=== PATIENT | female | born 1985 | race Native Hawaiian/Other Pacific Islander ===

== ENCOUNTER 2017-04-19 20:19 | Emergency (ER) | payer OTHER ==
[~2017-04-19] VITALS: Ht 162.6 cm; Wt 131.1 kg
[~2017-04-19 20:19] MED LIST: ALBU0.0813 IN
[2017-04-19 21:30] VITALS: BP 143/89; TEMP 98
== END 2017-04-19 21:30 | disposition home or self-care (01) ==
LOC: ED 20:19
DX: H92.02 Otalgia, left ear (principal); H60.592 Other noninfective acute otitis externa, left ear
CPT/HCPCS: 99283

== ENCOUNTER 2021-02-08 10:03 | Emergency (ER) | payer OTHER ==
[~2021-02-08] VITALS: Ht 162.6 cm; Wt 127.0 kg
[2021-02-08 10:13] VITALS: TEMP 98
[2021-02-08 13:15] VITALS: BP 130/66
== END 2021-02-08 13:24 | disposition home or self-care (01) ==
LOC: ED 10:03
DX: S20.212A Contusion of left front wall of thorax, initial encounter (principal); R07.89 Other chest pain; W10.8XXA Fall (on) (from) other stairs and steps, initial encounter; Y92.89 Other specified places as the place of occurrence of the external cause
CPT/HCPCS: 81000; 81025; 99283; J1885

== ENCOUNTER 2021-12-02 15:32 | Emergency (ER) | payer OTHER ==
[~2021-12-02] VITALS: Ht 162.6 cm; Wt 131.5 kg
[2021-12-02 15:57] LABS: PLATELET COUNT 212 K/uL (152-353)
[2021-12-02 16:14] LABS: POTASSIUM 3.5 mmol/L (3.6-5.2)
[2021-12-02 17:30] VITALS: BP 127/80; TEMP 97.9
== END 2021-12-02 17:30 | disposition home or self-care (01) ==
LOC: ED 15:32
PROVIDERS: Emergency Medicine
DX: T67.5XXA Heat exhaustion, unspecified, initial encounter (principal); E87.6 Hypokalemia; X30.XXXA Exposure to excessive natural heat, initial encounter; Y92.89 Other specified places as the place of occurrence of the external cause
CPT/HCPCS: 80053; 82550; 84484; 85027; 93005; 96360; 99283; 99284

== ENCOUNTER 2022-01-06 13:07 | Emergency (ER) | payer OTHER ==
[~2022-01-06] VITALS: Ht 162.6 cm; Wt 131.5 kg
[2022-01-06 13:41] LABS: PLATELET COUNT 244 K/uL (152-353)
[2022-01-06 13:50] LABS: POTASSIUM 3.4 mmol/L (3.6-5.2)
[2022-01-06 14:45] VITALS: BP 137/81; TEMP 98.1
== END 2022-01-06 14:45 | disposition home or self-care (01) ==
LOC: ED 13:07
PROVIDERS: Hospitalist
DX: F25.8 Other schizoaffective disorders (principal); F15.10 Other stimulant abuse, uncomplicated
CPT/HCPCS: 36415; 80053; 80143; 80179; 80307; 80320; 81002; 81025; 85027; 93005; 99283